=== PATIENT | male | born 1995 | race American Indian/Alaskan Native ===

== ENCOUNTER 2017-12-12 18:46 | Emergency (ER) | payer MEDICAID ==
[~2017-12-12] VITALS: Ht 165.1 cm; Wt 86.0 kg
[~2017-12-12 18:46] MED LIST: ARIP2TAB37 PO; CHOL100046 PO; TEN1T PO; TRAZ-218 PO; VITA0.4T16 PO
[2017-12-12] MEDS ORDERED: ondansetron 4mg rapidly disintigrating tab PO ONE (19:30)
[2017-12-12 20:15] VITALS: BP 125/73
[2017-12-12] MEDS ORDERED: ketorolac trometh inj. 60 MG/2 ML VIAL IM ONE (20:25)
== END 2017-12-12 20:41 | disposition home or self-care (01) ==
LOC: ER 18:47
DX: S06.0X0A Concussion without loss of consciousness, initial encounter (principal); Z79.899 Other long term (current) drug therapy; Z98.2 Presence of cerebrospinal fluid drainage device; W01.198A Fall on same level from slipping, tripping and stumbling with subsequent striking against other object, initial encounter; Y93.89 Activity, other specified; Y92.098 Other place in other non-institutional residence as the place of occurrence of the external cause; Y99.8 Other external cause status
CPT/HCPCS: 70450; 96372; 99284; J1885

== ENCOUNTER 2018-07-10 23:08 | Emergency (ER) | payer MEDICAID ==
[~2018-07-10] VITALS: Ht 162.6 cm; Wt 93.2 kg
[~2018-07-10 23:08] MED LIST changes: -TRAZ-218 PO; +TRAZ-251 PO
[2018-07-11] MEDS ORDERED: aripiprazole 5mg tablet PO STA (01:15)
--- NOTE | 2018-07-11 06:45 | NUR ---
Received Pt awake in bed and discussed why he was here. Calm and cooperative, yet needing reassurance that we would help him. Report from NOC stated he would be DC'd this AM but he has no where to go. He has an appt at [facility] tomorrow.
--- NOTE | 2018-07-11 09:45 | NUR ---
Pt used phone to call mother, and call ended when he hung up on her. Discussed further options for where he could go and encouraged to call mother again. This nurse was handed phone from client to talk to his mother, who provided some Hx of losing housing and angry/violent outbursts. Pt able to contact a cousin who he states will pick him up after work at 1730. Pt denies SI or any thoughts of self harm, and is calm and cooperative with staff.
[2018-07-11 17:46] VITALS: BP 142/94
== END 2018-07-11 18:40 | disposition home or self-care (01) ==
LOC: ER 23:08
DX: R45.6 Violent behavior (principal); F31.9 Bipolar disorder, unspecified; F20.9 Schizophrenia, unspecified; Z79.899 Other long term (current) drug therapy
CPT/HCPCS: 99283

== ENCOUNTER 2018-07-27 19:12 | Emergency (ER) | payer MEDICAID ==
[~2018-07-27] VITALS: Ht 162.6 cm; Wt 90.8 kg
--- NOTE | 2018-07-27 19:54 | NUR ---
Pt up to bathroom to provide urine specimen. Pt changed into green scrubs.
--- NOTE | 2018-07-27 20:02 | NUR ---
Pt arrived to overflow from [facility] er. Recvd report from [place] and assumed care. Pt states he is here for "SDI" states he has a plan to hang himself. Pt reports hx of jumping out of a vehicle and hitting his arms. Pt reports he did not take his evening meds tonight. Pt smells of feces, denies any pain or discomfort. Pt is currently laying on his bed eyes open rr even and unlabored.
[2018-07-27 20:55] LABS: URINE AMPHETAMINE SCREEN NEGATIVE (Neg); URINE BARBITUATE SCREEN NEGATIVE (Neg); URINE BENZODIAZEPINES SCREEN NEGATIVE (Neg); URINE CANNABINOID SCREEN NEGATIVE (Neg); URINE COCAINE SCREEN NEGATIVE (Neg); URINE METHADONE SCREEN NEGATIVE (Neg); URINE OPIATE SCREEN NEGATIVE (Neg); URINE PHENCYCLIDINE SCREEN NEGATIVE (Neg)
[2018-07-27 21:21] LABS: BASOPHILS % (AUTO) 0.3 % (0-1); EOSINOPHILS # (AUTO) 0.1 X10'3 (0-0.9); HEMATOCRIT 45.3 % (42.0-52.0); HEMOGLOBIN 15.8 g/dl (14.0-17.9); LYMPHOCYTES # (AUTO) 2.8 X10'3 (1.1-4.8); LYMPHOCYTES % (AUTO) 30.3 % (21-51); MEAN CORPUSCULAR HEMOGLOBIN 30.7 PG (27.0-31.0); MEAN CORPUSCULAR HGB CONC 34.8 g/dL (33.0-36.5); MEAN CORPUSCULAR VOLUME 88.2 FL (78-98); MEAN PLATELET VOLUME 6.8 FL (7.4-10.4); MONOCYTES # (AUTO) 0.7 X10'3 (0-0.9); MONOCYTES % (AUTO) 7.6 % (2-12); NEUTROPHILS # (AUTO) 5.6 X10'3 (1.8-7.7); NEUTROPHILS % (AUTO) 60.8 % (42-75); PLATELET COUNT 269 X10'3 (140-440); RED BLOOD COUNT 5.14 X10'6 (4.70-6.10); RED CELL DISTRIBUTION WIDTH 13.7 % (11.5-14.5); WHITE BLOOD COUNT 9.2 X10'3 (4.5-11.0)
[2018-07-27 21:34] LABS: ALANINE AMINOTRANSFERASE 41 U/L (12-78); ALBUMIN 3.5 G/DL (3.4-5.0); ALKALINE PHOSPHATASE 108 IU/L (46-116); ANION GAP 7 (8-16); ASPARTATE AMINO TRANSFERASE 13 U/L (10-37); BILIRUBIN,TOTAL 0.4 MG/DL (0.1-1.0); BLOOD UREA NITROGEN 15 MG/DL (7-18); BUN/CREATININE RATIO 14.4 (5.4-32.0); CHLORIDE 108 MMOL/L (99-107); CREATININE 1.04 MG/DL (0.60-1.10); GLUCOSE 99 MG/DL (70-104); POTASSIUM 3.6 MMOL/L (3.5-5.1); SODIUM 141 MMOL/L (135-145); TOTAL CARBON DIOXIDE 26.3 MMOL/L (24-32); TOTAL PROTEIN 6.9 G/DL (6.4-8.2); eGFR 90 ML/MIN
[2018-07-27 21:37] LABS: CALCIUM 8.4 MG/DL (8.5-10.1)
[2018-07-27 21:53] LABS: ETHANOL < 0.010 GM/DL (0.0-0.010)
--- NOTE | 2018-07-27 23:38 | NUR ---
Pt is asleep laying on his right side rr even and unlabored no s/s distress.
--- NOTE | 2018-07-28 01:01 | NUR ---
Pt sleeping on his left side, rr even and unlabored no s/s distress.
--- NOTE | 2018-07-28 03:50 | NUR ---
Pt is laying on his back sleeping, rr12 even and unlabored no s/s distress.
--- NOTE | 2018-07-28 05:43 | NUR ---
Packet faxed to [facility]. Unable to confirm receipt of packet as [id number] hours.
[2018-07-28] MEDS ORDERED: traZODone 50mg tablet PO SCH (06:05)
--- NOTE | 2018-07-28 06:40 | NUR ---
Nursing Nto Addendum: 07/28/18 at 0640 by PBROWN Nursing Note: Pt up to restroom. No S&S of distress. No difficulty with ambulation, will continue to monitor.
[2018-07-28] MEDS ORDERED: FOLIC ACID PO SCH (08:00)
[2018-07-28] MEDS ORDERED: vitamin D (cholecalciferol) 1,000 unit tablet PO SCH (08:00)
[2018-07-28] MEDS ORDERED: guanFACINE 1 mg tablet PO SCH (08:00)
[2018-07-28] MEDS ORDERED: VITAMIN B COMPLEX PO SCH (08:00)
--- NOTE | 2018-07-28 08:49 | NUR ---
Nursing Note: Following breakfast pt vomited. He indicated he was coughing, but not nauseated. At this time, pt denies depression and SI. He said he heard voices last night. When asked if his grandma knew where he is, he said that his grandma knew he was here because she dropped him off last night because he said he was going to hurt himself. Pt performing personal hygiene. Pt incontinent of stool and wearing brief. Will continue to monitor.
--- NOTE | 2018-07-28 09:35 | NUR ---
Nursing Note: Pt sitting up in bed looking at the wall. Pt noted to frequently turn head side to side. No S&S of distress, will continue to monitor.
--- NOTE | 2018-07-28 11:24 | NUR ---
Nursing Note: Pt laying in bed with eyes closed, respirations even and unlabored, no S&S of distress, will continue to monitor.
--- NOTE | 2018-07-28 11:56 | NUR ---
Nursing Note: [facility] worker at the pt's bedside evaluating pt. Pt calm and cooperative. Will continue to monitor.
--- NOTE | 2018-07-28 12:16 | NUR ---
Nursing Note: Pt BP 146/94 and HR 97, notified Dr. Sharma. Will continue to monitor.
--- NOTE | 2018-07-28 12:44 | NUR ---
PT IS DISCHAGRED HOME AND PTS GRANDMA CAME TO PICK HIM UP. PT LEFT AT 12:40
--- NOTE | 2018-07-28 12:59 | NUR ---
Discharge Note: Pt Discharged at 1240. Pt ambulatory out of ED escorted by GRETCHEN Lomeli, Grandmother picked up pt in private vehicle. Pt denies SI and depression. No S&S of distress. Pt took all valuables with him. Discharge instructions given, pt instructed to carry medication list with him at all times. Pt provided opportunity to ask questions.
[2018-07-28 13:04] VITALS: BP 146/94
== END 2018-07-28 12:40 | disposition home or self-care (01) ==
LOC: ER 19:13
DX: R45.851 Suicidal ideations (principal); F31.9 Bipolar disorder, unspecified; F20.9 Schizophrenia, unspecified; Z98.890 Other specified postprocedural states; Z79.899 Other long term (current) drug therapy
CPT/HCPCS: 36415; 80053; 80305; 80320; 84443; 85025; 99284

== ENCOUNTER 2019-01-31 13:28 | Emergency (ER) | payer MEDICAID ==
[~2019-01-31] VITALS: Ht 162.6 cm; Wt 76.4 kg
[~2019-01-31 13:28] MED LIST changes: +ARIP20TA4 PO; -ARIP2TAB37 PO; +CHOL378P PO; +HYDR-3686 PO
--- NOTE | 2019-01-31 13:41 | NUR ---
pt escorted from ER [facility] to room 26 in overflow by myself and two law enforcement, no difficulties
[2019-01-31 14:14] LABS: BASOPHILS % (AUTO) 0.5 % (0-1); EOSINOPHILS # (AUTO) 0.1 X10'3 (0-0.9); EOSINOPHILS % (AUTO) 0.7 % (0-6); HEMOGLOBIN 15.9 g/dl (14.0-17.9); LYMPHOCYTES # (AUTO) 1.5 X10'3 (1.1-4.8); LYMPHOCYTES % (AUTO) 19.4 % (21-51); MEAN CORPUSCULAR HEMOGLOBIN 31.5 PG (27.0-31.0); MEAN CORPUSCULAR HGB CONC 34.6 g/dL (33.0-36.5); MEAN PLATELET VOLUME 6.8 FL (7.4-10.4); MONOCYTES # (AUTO) 0.5 X10'3 (0-0.9); MONOCYTES % (AUTO) 6.5 % (2-12); NEUTROPHILS # (AUTO) 5.6 X10'3 (1.8-7.7); NEUTROPHILS % (AUTO) 72.9 % (42-75); PLATELET COUNT 307 X10'3 (140-440); RED BLOOD COUNT 5.06 X10'6 (4.70-6.10); RED CELL DISTRIBUTION WIDTH 13.7 % (11.5-14.5); WHITE BLOOD COUNT 7.7 X10'3 (4.5-11.0)
[2019-01-31 14:15] LABS: URINE AMPHETAMINE SCREEN NEGATIVE (Neg); URINE BARBITUATE SCREEN NEGATIVE (Neg); URINE BENZODIAZEPINES SCREEN NEGATIVE (Neg); URINE CANNABINOID SCREEN POSITIVE (Neg); URINE COCAINE SCREEN NEGATIVE (Neg); URINE METHADONE SCREEN NEGATIVE (Neg); URINE OPIATE SCREEN NEGATIVE (Neg); URINE PHENCYCLIDINE SCREEN NEGATIVE (Neg)
--- NOTE | 2019-01-31 14:18 | NUR ---
Pt. arrived to bed 26. Pleasant and cooperative. States he is here because he was throwing items at the [employer] for the [employer]. When asked why he states "They told me to leave, I was happy to just sit there and enjoy my day." States he hears voices, does not elaborate on what they say but states "I have 4 of them in me, happy, depressed, angry,". Explains he has a payee that gives him $50.00 week for food, if he doesn't have enough his parents will give him small amounts of money for food. While sitting in bed, he continually shakes his head from side to side. Admits to being homeless, states he has a tarp when he needs to stay dry, would like a place to live and wanted to speak to his doctor at [facility] to get back on his psychiatric medications.
[2019-01-31 14:25] LABS: ALANINE AMINOTRANSFERASE 44 U/L (12-78); ALBUMIN 3.8 G/DL (3.4-5.0); ALBUMIN/GLOBULIN RATIO 1.1 (1.1-1.5); ALKALINE PHOSPHATASE 126 IU/L (46-116); ANION GAP 5 (8-16); ASPARTATE AMINO TRANSFERASE 16 U/L (10-37); BILIRUBIN,TOTAL 0.2 MG/DL (0.1-1.0); BLOOD UREA NITROGEN 14 MG/DL (7-18); CALCIUM 8.4 MG/DL (8.5-10.1); CHLORIDE 108 MMOL/L (99-107); CREATININE 1.08 MG/DL (0.60-1.10); ETHANOL < 0.010 GM/DL (0.0-0.010); GLUCOSE 92 MG/DL (70-104); SODIUM 141 MMOL/L (135-145); TOTAL CARBON DIOXIDE 28.3 MMOL/L (24-32); TOTAL PROTEIN 7.2 G/DL (6.4-8.2); eGFR 86 ML/MIN
[2019-01-31] MEDS ORDERED: HYDR-3927 PO (14:31)
[2019-01-31] MEDS ORDERED: CHOL500050 PO (14:32)
[2019-01-31 15:10] LABS: PLATELET ESTIMATE NORMAL; TOTAL CELLS COUNTED 100
[2019-01-31] MEDS ORDERED: traZODone 50mg tablet PO SCH (15:50)
--- NOTE | 2019-01-31 16:19 | NUR ---
spoke with patient regarding his medications, able to communicate his normal medications, states he has not been on them for more than 7 months. When asked why he wasn't taking them, he stated "I don't know". Has a psychiatrist at [facility] and appears to have the cognitive abilityt to obtain and take his medications.
--- NOTE | 2019-01-31 18:05 | NUR ---
Evaluated by [facility] SW. Determined to not meet requirement for 5150 hold. Plan [facility] to the [facility] and follow up with physician at [facility].
--- NOTE | 2019-01-31 18:30 | NUR ---
Assumed care of patient, pt sitting up talking animatedly to another patient and eating dinner at this time. RR even and unlabored.
[2019-01-31 19:12] VITALS: BP 136/83
--- NOTE | 2019-01-31 19:25 | NUR ---
Pt. discharged to the [facility] at s time via [employer], he was able to ambulate out to the front lobby accompanied by staff. Reviewed discharge instructions with patient and pt. provided with resources. He is able to contract for the safety of himself and others at this time. He has plans to follow-up with [facility] and get back on his medications of which he has been non-compliant. He received a meal prior to discharge and has weather appropriate clothing to wear. Upon completion of 1:1 assessment with this law writer, pt. denies any S/I, HI, H/A, and no delustional statements made. V/S are WNL, and pt. refused to take any HS medications prior to discharge.
[2019-01-31] MEDS ORDERED: guanFACINE 1 mg tablet PO SCH (20:00)
[2019-01-31] MEDS ORDERED: hydrOXYzine 25 MG tablet PO SCH (21:00)
[2019-02-01] MEDS ORDERED: vitamin D (cholecalciferol) 1,000 unit tablet PO SCH (08:00)
[2019-02-01] MEDS ORDERED: hydrOXYzine 25 MG tablet PO SCH ×2 (08:00)
[2019-02-01] MEDS ORDERED: ARIPIPRAZOLE 10 MG TABLET PO SCH (08:00)
[2019-02-01] MEDS ORDERED: FOLIC ACID PO SCH (08:00)
[2019-02-01] MEDS ORDERED: VITAMIN B COMPLEX PO SCH (08:00)
[2019-02-01] MEDS ORDERED: chloestyramine/aspartame 4gm packet PO SCH (11:00)
== END 2019-01-31 19:39 | disposition home or self-care (01) ==
LOC: ER 13:30
DX: R45.6 Violent behavior (principal); F31.9 Bipolar disorder, unspecified; F20.9 Schizophrenia, unspecified; F90.9 Attention-deficit hyperactivity disorder, unspecified type; F12.90 Cannabis use, unspecified, uncomplicated; Z98.890 Other specified postprocedural states; Z79.899 Other long term (current) drug therapy
CPT/HCPCS: 36415; 80053; 80305; 80320; 85025; 99285

== ENCOUNTER 2019-03-25 19:09 | Emergency (ER) | payer MEDICAID ==
[~2019-03-25] VITALS: Ht 165.1 cm; Wt 75.0 kg
[2019-03-25 21:38] LABS: BASOPHILS % (AUTO) 0.6 % (0-1); EOSINOPHILS # (AUTO) 0.1 X10'3 (0-0.9); EOSINOPHILS % (AUTO) 1.4 % (0-6); HEMATOCRIT 45.2 % (42.0-52.0); HEMOGLOBIN 15.8 g/dl (14.0-17.9); LYMPHOCYTES # (AUTO) 2.5 X10'3 (1.1-4.8); LYMPHOCYTES % (AUTO) 32.5 % (21-51); MEAN CORPUSCULAR HEMOGLOBIN 31.4 PG (27.0-31.0); MEAN CORPUSCULAR VOLUME 89.8 FL (78-98); MEAN PLATELET VOLUME 6.9 FL (7.4-10.4); MONOCYTES # (AUTO) 0.5 X10'3 (0-0.9); MONOCYTES % (AUTO) 6.7 % (2-12); NEUTROPHILS # (AUTO) 4.5 X10'3 (1.8-7.7); NEUTROPHILS % (AUTO) 58.8 % (42-75); PLATELET COUNT 272 X10'3 (140-440); RED BLOOD COUNT 5.03 X10'6 (4.70-6.10); RED CELL DISTRIBUTION WIDTH 13.5 % (11.5-14.5); WHITE BLOOD COUNT 7.7 X10'3 (4.5-11.0)
[2019-03-25 21:52] LABS: ALANINE AMINOTRANSFERASE 17 U/L (12-78); ALBUMIN 3.7 G/DL (3.4-5.0); ALBUMIN/GLOBULIN RATIO 1.2 (1.1-1.5); ALKALINE PHOSPHATASE 125 IU/L (46-116); ANION GAP 6 (8-16); ASPARTATE AMINO TRANSFERASE 12 U/L (10-37); BILIRUBIN,TOTAL 0.3 MG/DL (0.1-1.0); BLOOD UREA NITROGEN 11 MG/DL (7-18); BUN/CREATININE RATIO 11.5 (5.4-32.0); CALCIUM 8.5 MG/DL (8.5-10.1); CHLORIDE 111 MMOL/L (99-107); CREATININE 0.96 MG/DL (0.60-1.10); ETHANOL < 0.010 GM/DL (0.0-0.010); GLUCOSE 104 MG/DL (70-104); POTASSIUM 3.6 MMOL/L (3.5-5.1); SODIUM 146 MMOL/L (135-145); TOTAL CARBON DIOXIDE 28.6 MMOL/L (24-32); TOTAL PROTEIN 6.9 G/DL (6.4-8.2); eGFR > 90 ML/MIN
--- NOTE | 2019-03-25 23:00 | NUR ---
Pt brought to overflow bed 23 from main ED. pt now states that he is no longer suicidal. pt denies any complaints and appears to be fatigued or sedated, as he was difficult to arouse for assessment.
--- NOTE | 2019-03-25 23:10 | NUR ---
attempted to have pt provide urine sample but pt refused, saying he "will later."
[2019-03-25] MEDS ORDERED: NO HOME MEDS (23:19)
--- NOTE | 2019-03-25 23:19 | NUR ---
pt reports that he does not take medications. He stated that he used to take meds but no longer does but is unsure how long it has been. pt's external med hx show his last rx was prescribed in June 2018.
--- NOTE | 2019-03-25 23:48 | NUR ---
pt is sleeping, no s/s of distress noted. rr unlabored.
--- NOTE | 2019-03-26 02:44 | NUR ---
pt continues to sleep with periods of restlessness. no s/s of distress noted.
--- NOTE | 2019-03-26 04:36 | NUR ---
pt is sleeping, rr unlabored and even, no s/s of distress noted.
--- NOTE | 2019-03-26 05:37 | NUR ---
pt is sleeping, wrapped up in his blanket with his head covered. no s/s of distress noted, rr unlabored and even.
[2019-03-26 05:57] VITALS: BP 116/70
[2019-03-26] MEDS ORDERED: LORazepam 1 MG tablet PO ONE (06:15)
[2019-03-26 06:23] LABS: URINE AMPHETAMINE SCREEN NEGATIVE (Neg); URINE BARBITUATE SCREEN NEGATIVE (Neg); URINE BENZODIAZEPINES SCREEN NEGATIVE (Neg); URINE CANNABINOID SCREEN POSITIVE (Neg); URINE COCAINE SCREEN NEGATIVE (Neg); URINE METHADONE SCREEN NEGATIVE (Neg); URINE OPIATE SCREEN NEGATIVE (Neg); URINE PHENCYCLIDINE SCREEN NEGATIVE (Neg)
--- NOTE | 2019-03-26 06:26 | NUR ---
pt sitting up in bed asking about his meds. c/o anxiety. Ativan ordered and given by night RN. pt asking about taking [place] 300mg. Dr. Fernández aware and ordered to check lithium level. pt appears to be calm and cooperative.
--- NOTE | 2019-03-26 08:13 | NUR ---
resting calm and quiet in bed.
--- NOTE | 2019-03-26 09:56 | NUR ---
resting calm and quiet in bed.
== END 2019-03-26 11:49 | disposition home or self-care (01) ==
LOC: ER 19:10
DX: F32.9 Major depressive disorder, single episode, unspecified (principal); F20.9 Schizophrenia, unspecified; F17.200 Nicotine dependence, unspecified, uncomplicated; F12.90 Cannabis use, unspecified, uncomplicated; Z98.890 Other specified postprocedural states; Z59.0 Homelessness
CPT/HCPCS: 36415; 80053; 80178; 80305; 80320; 85025; 99284

== ENCOUNTER 2019-06-16 15:17 | Emergency (ER) | payer MEDICAID ==
[~2019-06-16] VITALS: Ht 165.1 cm; Wt 68.2 kg
[~2019-06-16 15:17] MED LIST changes: -ARIP20TA4 PO; -CHOL100046 PO; -CHOL378P PO; -HYDR-3686 PO; +NO HOME MEDS; -TEN1T PO; -TRAZ-251 PO; -VITA0.4T16 PO
[2019-06-16 16:13] LABS: CLARITY,URINE CLEAR (Clear); COLOR,URINE YELLOW (Yellow); GLUCOSE, URINE NEGATIVE (Neg); KETONES,URINE NEGATIVE (Neg); LEUKOCYTE ESTERASE ,URINE NEGATIVE (Neg); NITRITES, URINE NEGATIVE (Neg); OCCULT BLOOD,URINE NEGATIVE (Neg); PH,URINE 7.5 (4.8-8.0); PROTEIN,URINE NEGATIVE (Neg); UA COLLECTION TYPE CLN CATCH MIDSTREAM
[2019-06-16 16:14] LABS: BASOPHILS % (AUTO) 0.3 % (0-1); EOSINOPHILS # (AUTO) 0.1 X10'3 (0-0.9); EOSINOPHILS % (AUTO) 0.6 % (0-6); HEMATOCRIT 46.9 % (42.0-52.0); HEMOGLOBIN 16.4 g/dl (14.0-17.9); LYMPHOCYTES # (AUTO) 1.9 X10'3 (1.1-4.8); LYMPHOCYTES % (AUTO) 21.4 % (21-51); MEAN CORPUSCULAR VOLUME 88.7 FL (78-98); MONOCYTES # (AUTO) 0.5 X10'3 (0-0.9); MONOCYTES % (AUTO) 5.1 % (2-12); NEUTROPHILS # (AUTO) 6.4 X10'3 (1.8-7.7); NEUTROPHILS % (AUTO) 72.6 % (42-75); PLATELET COUNT 302 X10'3 (140-440); RED BLOOD COUNT 5.29 X10'6 (4.70-6.10); RED CELL DISTRIBUTION WIDTH 13.2 % (11.5-14.5); WHITE BLOOD COUNT 8.9 X10'3 (4.5-11.0)
[2019-06-16 16:16] LABS: URINE AMPHETAMINE SCREEN NEGATIVE (Neg); URINE BARBITUATE SCREEN NEGATIVE (Neg); URINE BENZODIAZEPINES SCREEN NEGATIVE (Neg); URINE CANNABINOID SCREEN NEGATIVE (Neg); URINE COCAINE SCREEN NEGATIVE (Neg); URINE METHADONE SCREEN NEGATIVE (Neg); URINE OPIATE SCREEN NEGATIVE (Neg); URINE PHENCYCLIDINE SCREEN NEGATIVE (Neg)
--- NOTE | 2019-06-16 16:17 | NUR ---
sitting up in bed resting
[2019-06-16 16:23] LABS: ALANINE AMINOTRANSFERASE 19 U/L (12-78); ALBUMIN/GLOBULIN RATIO 1.1 (1.1-1.5); ALKALINE PHOSPHATASE 124 IU/L (46-116); ANION GAP 10 (8-16); ASPARTATE AMINO TRANSFERASE 15 U/L (10-37); BILIRUBIN,TOTAL 0.4 MG/DL (0.1-1.0); BLOOD UREA NITROGEN 20 MG/DL (7-18); BUN/CREATININE RATIO 18.9 (5.4-32.0); CALCIUM 8.7 MG/DL (8.5-10.1); CHLORIDE 106 MMOL/L (99-107); CREATININE 1.06 MG/DL (0.60-1.10); GLUCOSE 89 MG/DL (70-104); POTASSIUM 4.1 MMOL/L (3.5-5.1); SODIUM 141 MMOL/L (135-145); TOTAL CARBON DIOXIDE 25.2 MMOL/L (24-32); TOTAL PROTEIN 7.6 G/DL (6.4-8.2); eGFR 88 ML/MIN
--- NOTE | 2019-06-16 17:02 | NUR ---
lying down in bed
[2019-06-16 17:22] LABS: ETHANOL < 0.010 GM/DL (0.0-0.010)
--- NOTE | 2019-06-16 17:50 | NUR ---
PACKET SENT TO [facility]
--- NOTE | 2019-06-16 19:28 | NUR ---
Patient is pleasant and A&O x3, follow commands and give no indication that he would be violent. At this time he requested a sandwich and was given one.
--- NOTE | 2019-06-16 20:50 | NUR ---
Patient talking with [facility] now.
--- NOTE | 2019-06-17 06:30 | NUR ---
pt is resting in bed. no concerns at this time
--- NOTE | 2019-06-17 07:30 | NUR ---
pt is resting in bed
--- NOTE | 2019-06-17 08:37 | NUR ---
case management and social worker clinical paged about placement issues
--- NOTE | 2019-06-17 09:00 | NUR ---
pt resting in his room.
--- NOTE | 2019-06-17 10:00 | NUR ---
pt resting in his room.
--- NOTE | 2019-06-17 11:00 | NUR ---
pt resting in his room.
--- NOTE | 2019-06-17 12:00 | NUR ---
pt resting in his room.
--- NOTE | 2019-06-17 13:00 | NUR ---
pt resting in his room.
--- NOTE | 2019-06-17 13:54 | NUR ---
pt does not have a safe dc plan. pt can not stay at mission, family or hotel. pt has no money for food or intermediate. pt does not have his medications and his old RX is . called upstairs for med recommendations. [facility] called they informed staff they have limited resources for him being he is not conserved. [facility] dc pt and released hold. bernadette made an adult protective service case regarding [facility] no providing help for the patient. caregiver called patient regarding helping pt to get his belonging from the hotel
--- NOTE | 2019-06-17 15:00 | NUR ---
pt resting in his room.
--- NOTE | 2019-06-17 16:00 | NUR ---
pt resting in his room.
--- NOTE | 2019-06-17 17:00 | NUR ---
pt resting in his room.
--- NOTE | 2019-06-17 18:10 | NUR ---
pt can be dc when a safe dc place is found. boyd cerda is working on placement now and thinks it will be confirmed in the morning. pt's rx was filled for 30 days. pills were picked up from pharmacy for the patient. please make sure the patient is sent with his meds
--- NOTE | 2019-06-17 18:28 | NUR ---
pt resting in his room.
[2019-06-17] MEDS ORDERED: LIT300C PO (19:00)
[2019-06-17] MEDS ORDERED: GUAN1TAB PO (19:00)
[2019-06-17] MEDS ORDERED: HYDR-3686 PO (19:00)
--- NOTE | 2019-06-17 19:36 | NUR ---
Patient cooperative and pleasant, is resting comfortably on hospital bed. He inquired when he would be dischared, I advised we were working with SS to find a safe place for him to go.
[2019-06-17] MEDS: guanFACINE 1 mg tablet PO SCH (20:16)
[2019-06-17] MEDS: lithium carbonate 150mg capsule PO SCH (20:16)
--- NOTE | 2019-06-18 06:48 | NUR ---
awake, sitting up and resting in bed quietly. no issues or needs at this time. asked what time it was and when breakfast was coming.
--- NOTE | 2019-06-18 08:30 | NUR ---
sat up in bed eating breakfast. calm and cooperative with getting vital signs this AM.
--- NOTE | 2019-06-18 08:39 | NUR ---
up to bathroom getting himself cleaned up. pt very smelly. bed linens changed.
[2019-06-18] MEDS: guanFACINE 1 mg tablet PO SCH ×2 (08:49→21:07)
[2019-06-18] MEDS: hydrOXYzine 25 MG tablet PO PRN ×2 (08:52→16:26)
--- NOTE | 2019-06-18 10:09 | NUR ---
resting quietly in bed.
--- NOTE | 2019-06-18 12:59 | NUR ---
sitting up in bed eating lunch. calm.
--- NOTE | 2019-06-18 14:43 | NUR ---
resting quietly in bed. no needs at this time.
--- NOTE | 2019-06-18 15:49 | NUR ---
Glenis Simpson - pts worker with [facility] called for update on pt and stated she is working on getting a referral packet sent to a respite in [place]. States she could know more info about that tomorrow. States she was able to obtain all the pts belongings from the hotel for him.
--- NOTE | 2019-06-18 16:31 | NUR ---
snack provided and Atarax adminstered per pt request. pt pleasant sitting up in bed.
--- NOTE | 2019-06-18 17:56 | NUR ---
calm and pleasant sitting up in bed.
--- NOTE | 2019-06-18 19:00 | NUR ---
Pt sitting up in bed quietly.
--- NOTE | 2019-06-18 20:00 | NUR ---
Pt resting quietly.
--- NOTE | 2019-06-18 21:00 | NUR ---
Pt resting quietly, respirations normal, no s/s of distress.
[2019-06-18] MEDS: lithium carbonate 150mg capsule PO SCH (21:04)
--- NOTE | 2019-06-18 22:00 | NUR ---
Pt resting quietly, respirations normal, no s/s of distress.
--- NOTE | 2019-06-18 23:06 | NUR ---
Pt resting quietly, respirations normal, no s/s of distress.
--- NOTE | 2019-06-19 01:00 | NUR ---
Pt resting quietly, respirations normal, no s/s of distress.
--- NOTE | 2019-06-19 02:00 | NUR ---
Pt resting quietly, respirations normal, no s/s of distress.
--- NOTE | 2019-06-19 03:00 | NUR ---
Pt resting quietly, respirations normal, no s/s of distress.
--- NOTE | 2019-06-19 03:57 | NUR ---
Pt resting quietly, respirations normal, no s/s of distress.
--- NOTE | 2019-06-19 07:00 | NUR ---
Pt lying in bed sleeping on his left side.
[2019-06-19] MEDS: guanFACINE 1 mg tablet PO SCH ×2 (08:08→19:13)
--- NOTE | 2019-06-19 09:00 | NUR ---
Pt is awake and remains calm. Ate all of his breakfast and took his medication.
--- NOTE | 2019-06-19 11:00 | NUR ---
Informed pt of xray to be coming to take his chest xray soon. He states understanding.
--- NOTE | 2019-06-19 13:35 | NUR ---
Breaking primary RN, pt is supine in bed, eyes closed, regular breathing observed, no agitation observed, will continue to monitor
--- NOTE | 2019-06-19 15:00 | NUR ---
Still waiting to hear for placement from [facility]. Pt made aware of plan.
--- NOTE | 2019-06-19 17:00 | NUR ---
Spoke with Bel from licensed social worker. No beds available today.
--- NOTE | 2019-06-19 19:02 | NUR ---
pt is requesting his anxiety meds. he stated the commotion on the unit is overwhelming him
--- NOTE | 2019-06-19 19:06 | NUR ---
pt asked for all his night meds to be administered at this time
[2019-06-19] MEDS: hydrOXYzine 25 MG tablet PO PRN (19:13)
[2019-06-19] MEDS: lithium carbonate 150mg capsule PO SCH (19:13)
--- NOTE | 2019-06-20 06:28 | NUR ---
resting in bed quietly. rr even and unlabored. no needs at this time.
[2019-06-20] MEDS: guanFACINE 1 mg tablet PO SCH ×2 (08:41→22:23)
--- NOTE | 2019-06-20 08:43 | NUR ---
sitting up in bed eating breakfast, calm and cooperative.
--- NOTE | 2019-06-20 09:01 | NUR ---
Called Nga from [facility] for update. He has 2 referrals out currently for pts placement and will put out 4 more today. Still awaiting placement.
--- NOTE | 2019-06-20 10:42 | NUR ---
sitting up in bed awake, making random animal sounds. no needs at this time. pt frequantly asks for an update on possible transfer to a facility. pt updated with same information each time "no new news yet from [facility]."
--- NOTE | 2019-06-20 11:29 | NUR ---
sitting up in bed, awake, calm.
--- NOTE | 2019-06-20 13:06 | NUR ---
sitting up in bed eating lunch. pleasant attitude.
--- NOTE | 2019-06-20 14:12 | NUR ---
sitting up in bed, pleasant and quiet.
--- NOTE | 2019-06-20 15:45 | NUR ---
calm, sitting up in bed, pleasant with a smile on his face. no needs at this time.
--- NOTE | 2019-06-20 17:00 | NUR ---
pt calm, pleasant, laughing, and talking to other patients, joking with staff. sitting up in bed drawing on paper. appears to be in good spirits.
--- NOTE | 2019-06-20 19:11 | NUR ---
Patient is awake, he ate full dinner and colored. The patient then laid back and went to sleep in a mid fowlers position.
[2019-06-20] MEDS: lithium carbonate 150mg capsule PO SCH (22:23)
[2019-06-20] MEDS: hydrOXYzine 25 MG tablet PO PRN (22:23)
--- NOTE | 2019-06-21 00:06 | NUR ---
Patient has soiled his scrubs with stool. Patient taken to bathroom. Given clean wipes to clean self. Patient is back to bed. He complains of some anxiety.
[2019-06-21] MEDS ORDERED: LORazepam 1 MG tablet PO ONE (00:50)
[2019-06-21] MEDS ORDERED: diphenhydrAMINE 25mg capsule PO ONE (00:50)
--- NOTE | 2019-06-21 01:05 | NUR ---
Patient was given PO Benadryl 25 mg for sleep along with Ativan 1 mg PO for anxiety. He is resting now. In view from the nursing station.
--- NOTE | 2019-06-21 02:30 | NUR ---
Pt sleeping, lying on his right side with blankets covering to his chest. RR 14 and unlabored. Sitter within view of Pt aat.
--- NOTE | 2019-06-21 03:36 | NUR ---
Patient is sleeping quietly on his right side.
--- NOTE | 2019-06-21 04:30 | NUR ---
Patient is sleeping quietly.
--- NOTE | 2019-06-21 06:27 | NUR ---
Patient awoke for vital signs then returned to sleep. No distress.
--- NOTE | 2019-06-21 07:00 | NUR ---
Received pt asleep in his bed without complaints or distress. Pt up x 1 to the bathroom.
[2019-06-21] MEDS: guanFACINE 1 mg tablet PO SCH ×2 (07:59→20:28)
--- NOTE | 2019-06-21 09:00 | NUR ---
Pt fell back to sleep after awakening for breakfast. Pt pleasant upon approach and took am medication with only minimal prompting.
--- NOTE | 2019-06-21 11:00 | NUR ---
Pt laying in bed with eyes closed in no apparent distress.
--- NOTE | 2019-06-21 11:32 | NUR ---
Spoke with Bry at [facility] and they are awaiting acceptance to a facility in [place] and will update us when they hear back.
--- NOTE | 2019-06-21 13:00 | NUR ---
Pt was able to get a shower with security and [facility] [employer] tech assistance. Bed linen changed while away at shower. Pt cooperative. Pt asking if we have heard anything about his leaving. No updates to give pt at this time and he is cooperative with that.
--- NOTE | 2019-06-21 15:00 | NUR ---
Pt sat up for lunch and was awake for awhile, but currently is sleeping again in bed without distress.
--- NOTE | 2019-06-21 17:00 | NUR ---
Pt asleep in bed without complaints or distress.
[2019-06-21] MEDS: hydrOXYzine 25 MG tablet PO PRN (20:28)
[2019-06-21] MEDS: lithium carbonate 150mg capsule PO SCH (20:28)
--- NOTE | 2019-06-21 21:18 | NUR ---
Patient is sleeping quietly on his left side.
--- NOTE | 2019-06-21 22:59 | NUR ---
Patient is sleeping on his right side in bed.
--- NOTE | 2019-06-22 00:29 | NUR ---
Patient is sleeping on his right side.
--- NOTE | 2019-06-22 00:30 | NUR ---
Patient is now sleeping in a mid fowlers position.
--- NOTE | 2019-06-22 03:06 | NUR ---
Patient is sleeping on his right side in bed.
[2019-06-22] MEDS: guanFACINE 1 mg tablet PO SCH ×2 (08:52→20:21)
[2019-06-22] MEDS ORDERED: famotidine 20mg tablet PO ONE (13:51)
--- NOTE | 2019-06-22 14:05 | NUR ---
Assumed care of pt while primary nurse on lunch break. Resting in [facility]. Will continue to monitor.
[2019-06-22] MEDS: lithium carbonate 150mg capsule PO SCH (20:22)
[2019-06-22] MEDS: famotidine 20mg tablet PO SCH (20:22)
[2019-06-22] MEDS: hydrOXYzine 25 MG tablet PO PRN (20:42)
--- NOTE | 2019-06-23 07:17 | NUR ---
Resting in bed
[2019-06-23] MEDS: hydrOXYzine 25 MG tablet PO PRN (07:36)
[2019-06-23] MEDS: famotidine 20mg tablet PO SCH ×2 (07:41→20:00)
[2019-06-23] MEDS: guanFACINE 1 mg tablet PO SCH ×2 (07:41→20:00)
--- NOTE | 2019-06-23 08:05 | NUR ---
Resting in bed
--- NOTE | 2019-06-23 09:00 | NUR ---
resting in bed
--- NOTE | 2019-06-23 10:12 | NUR ---
resting in bed
--- NOTE | 2019-06-23 11:03 | NUR ---
Resting in bed
--- NOTE | 2019-06-23 12:00 | NUR ---
Resting in bed
--- NOTE | 2019-06-23 13:08 | NUR ---
Resting in bed
--- NOTE | 2019-06-23 14:31 | NUR ---
resting in bed
--- NOTE | 2019-06-23 16:01 | NUR ---
Resting in bed
--- NOTE | 2019-06-23 17:00 | NUR ---
Sitting in bed
--- NOTE | 2019-06-23 18:15 | NUR ---
upon taking report on this patient from abhishek (the [employer]) stated that the patient was agitated because of other patient being unruly. medications were given and he seemed to calm down .
[2019-06-23] MEDS ORDERED: diphenhydrAMINE 50 mg/ml inj IM ONE (19:00)
[2019-06-23] MEDS ORDERED: LORazepam 2 mg/ml vial IM PRN (19:00)
[2019-06-23] MEDS ORDERED: haloperidol lactate 5mg/ml inj IM PRN (19:00)
--- NOTE | 2019-06-23 20:22 | NUR ---
Upon taking report on this patient, he was agitated, unruly and and unwilling to follow commands. [facility] staff member were present during exchanges. staff present were Dejan aj)Ochoa Rn, Lele Marc, security rhett. With the continuing escalation, medication was necessary to help calm the agitated patients. Dr. knight agreeed and prescribed Halidol, Ativan and benedryl. Security was required to help with the administration of meds. Now after approximatley after 45 min after waiting for the onset of the medication, patient is calm and resting quietly.
--- NOTE | 2019-06-23 20:36 | NUR ---
Spoke to lady Poon regarding scheduled homemeds. Due to the prior agitation and calming meds, patient is now asleep. In attempting to arouse the patient to take his night meds was unsucessful. In discussing possible solutions with pharmacist, we decided to re-time the patient's scheduled meds for 0700 so as not to miss a dose or go out of the patient's medication regimine.
[2019-06-23] MEDS: lithium carbonate 150mg capsule PO SCH (20:49)
--- NOTE | 2019-06-24 06:40 | NUR ---
RCVD REPORT FROM CATHERINE MILTON, PT IS LAYING ON HIS RIGHT SIDE, EYES CLOSED, APPEARS TO BE SLEEPING, NO S/S OF AGITATION OBSERVED, WILL CONTINUE TO MONITOR
--- NOTE | 2019-06-24 07:30 | NUR ---
pt is still asleep
[2019-06-24] MEDS: guanFACINE 1 mg tablet PO SCH ×2 (08:15→20:16)
[2019-06-24] MEDS: famotidine 20mg tablet PO SCH ×2 (08:15→20:16)
--- NOTE | 2019-06-24 08:40 | NUR ---
spoke with Bel structural steel trades worker re plan for pt, she stated she just got here and read the notes to see status
--- NOTE | 2019-06-24 09:40 | NUR ---
pt is sitting up in bed, eyes open, no agitation observed
--- NOTE | 2019-06-24 09:41 | NUR ---
Bel mental health social worker, called Ryan Pichardo for status update,(Nga)
--- NOTE | 2019-06-24 11:00 | NUR ---
pt is resting in his room, no agitation observed
--- NOTE | 2019-06-24 12:00 | NUR ---
sitting up in bed, verbally saying he's going out the back door, then no one cares, setting the rest of the patients off
--- NOTE | 2019-06-24 12:35 | NUR ---
pt is up at the desk, requesting that we call hotels for him and his bank to find out about his balances, he was asked to call the people that handle his money
--- NOTE | 2019-06-24 13:30 | NUR ---
pt speaking out back and forth fron nurses desk
--- NOTE | 2019-06-24 13:50 | NUR ---
pt is getting more anxious req prn, prn will be given
[2019-06-24] MEDS: hydrOXYzine 25 MG tablet PO PRN ×2 (13:53→21:30)
--- NOTE | 2019-06-24 14:50 | NUR ---
pt asking about hotel names and numbers
--- NOTE | 2019-06-24 15:34 | NUR ---
pt has found a hotel, Glenis at [facility] that pt has money to pay, she will cover his hotel and get reimbursed for costs
--- NOTE | 2019-06-24 16:03 | NUR ---
called Rosie who handles pts housing at [phone] she is in contact with [facility] and a hotel that will accept the pt if he has supervision, they will not accept people with violent behaviors, they are trying to find staffing to sit with him at hotel, he is banned from [facility] [place] and various other hotels, she called back to tell me that she is in contact with an independant living provider that will come and grain picker his packet to put staff in hotel with pt 24 hours a day until they can find him more permanent housing, she will be in contact with us tomorrow
--- NOTE | 2019-06-24 16:41 | NUR ---
spoke to pt re plan of care, he is very upset to not be leaving, he is crying, I explained to him that going forward he needs to work on his behaviors so that he can re build some of the bridges that he has burned, he is appreciative of conversation, states that he is hungry, I gave him yogurt, crackers and cheese
--- NOTE | 2019-06-24 17:17 | NUR ---
pt is now laying in bed, calm no s/s of agitation
--- NOTE | 2019-06-24 17:57 | NUR ---
pt is laying on his left side, eyes closed, regular breathing present, no agitation observed
--- NOTE | 2019-06-24 19:00 | NUR ---
ATTEMPTED TO REACH NUVIA AT [facility], UNABLE TO LEAVE VOICEMAIL DUE TO IT BEING "FULL"
--- NOTE | 2019-06-24 20:04 | NUR ---
SPOKE WITH NUVIA, SHE STATES PT WILL NEED TO STAY ANOTHER NIGHT, HE DOESN'T HAVE A 24 HR CAREGIVER. THERE IS ONE POSSIBLY WILLING TO WORK WITHT HE PATIENT, BUT HE WILL NOT BE ABLE TO MAKE A DECISION UNTIL TOMORROW AFTER REVEIWING THE PATIENTS PAPERWORK. PT MADE AWARE.
[2019-06-24] MEDS: lithium carbonate 150mg capsule PO SCH (20:16)
--- NOTE | 2019-06-24 20:28 | NUR ---
PT GIVEN MEDICATIONS FOR THE NIGHT. HE WAS REQUESTING ATARAX BUT HE'S UNABLE TO HAVE HIS NEXT PRN DOSE UNTIL CLOSER TO 10PM. PT MADE AWARE. HE IS NOW LYING IN BED.
[2019-06-24] MEDS ORDERED: LORazepam 2 mg/ml vial IM ONE (21:20)
--- NOTE | 2019-06-24 21:39 | NUR ---
PT TALKING TO HIMSELF AND MAKES RANDOM NOISES. AT ONE POINT HE IS MEOWING LIKE A CAT. PT ENCOURAGED TO KEEP IT QUIET AND TO NOT SPEAK OR DISRUPT OTHER PTS. PT GIVEN 2MG IM ATIVAN FOR AGITATION.
--- NOTE | 2019-06-24 23:04 | NUR ---
pt is sleeping, no s/s of distress noted.
--- NOTE | 2019-06-25 07:00 | NUR ---
no concerns. pt is not on hold. pt is waiting placement
[2019-06-25] MEDS: famotidine 20mg tablet PO SCH ×2 (08:16→20:20)
[2019-06-25] MEDS: guanFACINE 1 mg tablet PO SCH ×2 (08:16→20:20)
--- NOTE | 2019-06-25 09:00 | NUR ---
PT RESTING IN HIS ROOM. NO ISSUES AT THIS TIME. PT IS NOT ON A HOLD. WAITING PLACEMENT
--- NOTE | 2019-06-25 11:00 | NUR ---
PT RESTING IN HIS ROOM. NO ISSUES AT THIS TIME. PT IS NOT ON A HOLD. WAITING PLACEMENT
--- NOTE | 2019-06-25 13:00 | NUR ---
PT RESTING IN HIS ROOM. NO ISSUES AT THIS TIME. PT IS NOT ON A HOLD. WAITING PLACEMENT
[2019-06-25] MEDS: hydrOXYzine 25 MG tablet PO PRN (15:44)
--- NOTE | 2019-06-25 16:37 | NUR ---
interview with care givers went well. care givers will type their report and hopefully be able to pick the patient up tomorrow
--- NOTE | 2019-06-25 17:19 | NUR ---
NO ISSUES AT THIS TIME.
--- NOTE | 2019-06-25 19:19 | NUR ---
Left message with [facility] staff Rosie at [phone] and asked her to return call to confirm patient's placement and discharge plans for tomorrow at noon.
--- NOTE | 2019-06-25 19:20 | NUR ---
The patient is resting on his bed. He was irritable but was cooperative with the evening assessment. He was made aware of plan for discharge tomorrow.
[2019-06-25] MEDS: lithium carbonate 150mg capsule PO SCH (20:20)
--- NOTE | 2019-06-25 21:48 | NUR ---
The patient appears to be sleeping
--- NOTE | 2019-06-25 22:47 | NUR ---
The patient is currently resting on his bed and appears to be asleep
--- NOTE | 2019-06-26 01:00 | NUR ---
The patient appears to be sleeping
--- NOTE | 2019-06-26 03:23 | NUR ---
The patient appears to be sleeping
--- NOTE | 2019-06-26 05:48 | NUR ---
The patient is awake and having a morning snack
--- NOTE | 2019-06-26 06:38 | NUR ---
sitting up in chair at the end of his bed with side table in front of him. a&ox4, wide awake and pleasant.
[2019-06-26 08:10] VITALS: BP 114/79
[2019-06-26] MEDS: guanFACINE 1 mg tablet PO SCH (08:19)
[2019-06-26] MEDS: famotidine 20mg tablet PO SCH (08:19)
--- NOTE | 2019-06-26 08:47 | NUR ---
up and down from bed to chair. ate breakfast and took meds no problem this AM. appears to be slightly restless. up to bathroom and changed and got cleaned up independently.
--- NOTE | 2019-06-26 09:44 | NUR ---
PATIENT WILL BE RECEIVING SERVICES THROUGH [facility] THROUGH A COMPANY CALLED [employer]. TREMAYNE (HELPDESK MANAGER OF [employer]) WILL BE PICKING PATIENT UP AT NOON. HER NUMBER IS [phone]. COLBY ATKINS ASKED TO MAKE SURE WE SEND MEDICATIONS WITH PATIENT.
--- NOTE | 2019-06-26 10:16 | NUR ---
sitting up in chair at end of his bed. eager to leave today. pt supposed to be picked up around 1200.
--- NOTE | 2019-06-26 11:41 | NUR ---
walking around the unit. anxious and excited to leave around 1200.
--- NOTE | 2019-06-26 12:42 | NUR ---
pt transferred to [facility]
== END 2019-06-26 12:45 ==
LOC: ER 15:17
DX: R45.851 Suicidal ideations (principal); R45.850 Homicidal ideations; F31.9 Bipolar disorder, unspecified; F20.9 Schizophrenia, unspecified; F12.90 Cannabis use, unspecified, uncomplicated; Z98.890 Other specified postprocedural states
CPT/HCPCS: 36415; 71045; 80053; 80178; 80305; 80320; 81003; 85025; 96372; 99285

== ENCOUNTER 2019-09-08 13:24 | Emergency (ER) | payer MEDICAID ==
[~2019-09-08] VITALS: Ht 172.7 cm; Wt 90.0 kg
[~2019-09-08 13:24] MED LIST changes: +GUAN1TAB PO; +HYDR-3686 PO; +LIT300C PO; -NO HOME MEDS
[2019-09-08 13:42] VITALS: BP 118/92
== END 2019-09-08 15:16 | disposition home or self-care (01) ==
LOC: ER 13:25
DX: M25.562 Pain in left knee (principal); F31.9 Bipolar disorder, unspecified; F20.9 Schizophrenia, unspecified; F12.90 Cannabis use, unspecified, uncomplicated; Z98.890 Other specified postprocedural states; Z72.89 Other problems related to lifestyle; Z79.899 Other long term (current) drug therapy
CPT/HCPCS: 99281

== ENCOUNTER 2019-09-22 14:40 | Emergency (ER) | payer MEDICAID ==
[~2019-09-22] VITALS: Ht 165.1 cm; Wt 70.5 kg
--- NOTE | 2019-09-22 15:01 | NUR ---
PT GIVEN 1000ML WATER, APPLE SAUCE AND SANDWICH. PT REPPORTS HE HAS NOT EATEN IN 3 DAYS.
[2019-09-22 15:45] VITALS: BP 138/85
--- NOTE | 2019-09-22 15:47 | NUR ---
PT GIVEN 2000 ML WATER, PT DRANK ALL OF IT.
== END 2019-09-22 16:29 | disposition home or self-care (01) ==
LOC: ER 14:41
DX: T67.5XXA Heat exhaustion, unspecified, initial encounter (principal); F31.9 Bipolar disorder, unspecified; F20.9 Schizophrenia, unspecified; F12.90 Cannabis use, unspecified, uncomplicated; Z98.890 Other specified postprocedural states; Z79.899 Other long term (current) drug therapy; X58.XXXA Exposure to other specified factors, initial encounter; Y93.89 Activity, other specified; Y92.89 Other specified places as the place of occurrence of the external cause; Y99.8 Other external cause status
CPT/HCPCS: 99283

== ENCOUNTER 2020-10-17 13:55 | Emergency (ER) | payer MEDICAID ==
[~2020-10-17] VITALS: Ht 165.1 cm; Wt 72.1 kg
[2020-10-17 14:20] VITALS: BP 122/73
== END 2020-10-17 15:55 | disposition home or self-care (01) ==
LOC: ER 13:56
DX: M25.572 Pain in left ankle and joints of left foot (principal); F31.9 Bipolar disorder, unspecified; F20.9 Schizophrenia, unspecified; F12.90 Cannabis use, unspecified, uncomplicated; Z72.89 Other problems related to lifestyle; Z98.890 Other specified postprocedural states; Z79.899 Other long term (current) drug therapy
CPT/HCPCS: 29515; 73610; 73630; 99284

== ENCOUNTER 2020-12-22 01:27 | Emergency (ER) | payer MEDICAID ==
[~2020-12-22] VITALS: Ht 167.6 cm; Wt 72.7 kg
[2020-12-22] MEDS ORDERED: acetaminophen 325mg tablet PO ONE (02:00)
[2020-12-22 04:34] VITALS: BP 136/78
== END 2020-12-22 04:36 | disposition home or self-care (01) ==
LOC: ER 01:28
DX: U07.1 COVID-19 (principal); R09.89 Other specified symptoms and signs involving the circulatory and respiratory systems; F31.9 Bipolar disorder, unspecified; F20.9 Schizophrenia, unspecified; F12.90 Cannabis use, unspecified, uncomplicated; Z72.89 Other problems related to lifestyle; Z98.890 Other specified postprocedural states; Z79.899 Other long term (current) drug therapy
CPT/HCPCS: 87635; 99283; C9803

== ENCOUNTER 2020-12-29 22:46 | Emergency (ER) | payer MEDICAID ==
[~2020-12-29] VITALS: Ht 170.2 cm; Wt 84.1 kg
[2020-12-29] MEDS ORDERED: BENZ-38 PO (23:05)
[2020-12-29] MEDS ORDERED: ALBU8HFA PO (23:05)
[2020-12-29 23:07] VITALS: BP 141/100
== END 2020-12-30 00:22 | disposition home or self-care (01) ==
LOC: ER 22:49
DX: U07.1 COVID-19 (principal); F31.9 Bipolar disorder, unspecified; F20.9 Schizophrenia, unspecified; F12.10 Cannabis abuse, uncomplicated; Z79.899 Other long term (current) drug therapy
CPT/HCPCS: 99282

== ENCOUNTER 2021-01-05 18:26 | Emergency (ER) | payer MEDICAID ==
[~2021-01-05] VITALS: Ht 165.1 cm; Wt 64.5 kg
[~2021-01-05 18:26] MED LIST changes: +ALBU8HFA PO; +BENZ-38 PO
[2021-01-05] MEDS ORDERED: NAPR-56 PO (20:09)
[2021-01-05 20:42] VITALS: BP 117/84
== END 2021-01-05 20:45 | disposition home or self-care (01) ==
LOC: ER 18:27
DX: S02.2XXA Fracture of nasal bones, initial encounter for closed fracture (principal); F12.90 Cannabis use, unspecified, uncomplicated; Z72.89 Other problems related to lifestyle; Z98.890 Other specified postprocedural states; Z79.899 Other long term (current) drug therapy; Z98.2 Presence of cerebrospinal fluid drainage device; Y04.0XXA Assault by unarmed brawl or fight, initial encounter; Y93.89 Activity, other specified; Y92.89 Other specified places as the place of occurrence of the external cause; Y99.8 Other external cause status
CPT/HCPCS: 70450; 99284

== ENCOUNTER 2021-01-11 05:30 | Emergency (ER) | payer MEDICAID ==
[~2021-01-11] VITALS: Ht 162.6 cm; Wt 75.0 kg
[~2021-01-11 05:30] MED LIST changes: -BENZ-38 PO; +NAPR-56 PO
[2021-01-11 05:43] VITALS: BP 125/78
[2021-01-11] MEDS ORDERED: NAPR-56 PO (06:04)
[2021-01-11] MEDS ORDERED: ALBU8HFA PO (06:04)
== END 2021-01-11 06:27 | disposition home or self-care (01) ==
LOC: ER 05:31
DX: M25.572 Pain in left ankle and joints of left foot (principal); F12.90 Cannabis use, unspecified, uncomplicated; J45.909 Unspecified asthma, uncomplicated; Z72.89 Other problems related to lifestyle; Z98.890 Other specified postprocedural states; Z79.899 Other long term (current) drug therapy
CPT/HCPCS: 99283

== ENCOUNTER 2021-01-29 23:07 | Emergency (ER) | payer MEDICAID ==
[~2021-01-29] VITALS: Ht 167.6 cm; Wt 76.0 kg
[2021-01-30] MEDS ORDERED: NEOM1OIN8 TOP (02:43)
[2021-01-30] MEDS ORDERED: proCHLORperazine 10mg tablet PO ONE (02:45)
[2021-01-30] MEDS ORDERED: acetaminophen 325mg tablet PO ONE (02:45)
[2021-01-30] MEDS ORDERED: ibuprofen tablet 400 MG TABLET PO ONE (02:45)
[2021-01-30] MEDS ORDERED: bacitracin 15gm ointment TP ONE (02:45)
[2021-01-30 03:19] VITALS: BP 115/74
== END 2021-01-30 03:23 | disposition home or self-care (01) ==
LOC: ER 23:07
DX: R51.9 Headache, unspecified (principal); J45.909 Unspecified asthma, uncomplicated; F31.9 Bipolar disorder, unspecified; F20.9 Schizophrenia, unspecified; F12.90 Cannabis use, unspecified, uncomplicated; Z98.890 Other specified postprocedural states; Z72.89 Other problems related to lifestyle; Z79.899 Other long term (current) drug therapy
CPT/HCPCS: 70450; 99284; Q0164

== ENCOUNTER 2021-02-12 02:13 | Emergency (ER) | payer MEDICAID ==
[~2021-02-12] VITALS: Ht 167.6 cm; Wt 74.8 kg
[~2021-02-12 02:13] MED LIST changes: -ALBU8HFA PO; -NAPR-56 PO; +NEOM1OIN8 TOP
[2021-02-12 02:21] VITALS: BP 109/68
[2021-02-12] MEDS ORDERED: ALBU8.5H17 IH (09:35)
== END 2021-02-12 10:23 | disposition home or self-care (01) ==
LOC: ER 02:13
DX: Z98.2 Presence of cerebrospinal fluid drainage device (principal); R51.9 Headache, unspecified; J45.909 Unspecified asthma, uncomplicated; F31.9 Bipolar disorder, unspecified; F20.9 Schizophrenia, unspecified; F12.90 Cannabis use, unspecified, uncomplicated; Z76.0 Encounter for issue of repeat prescription; Z98.890 Other specified postprocedural states; Z72.89 Other problems related to lifestyle; Z79.899 Other long term (current) drug therapy
CPT/HCPCS: 99283

== ENCOUNTER 2021-02-20 17:56 | Emergency (ER) | payer MEDICAID ==
[~2021-02-20] VITALS: Ht 167.6 cm; Wt 75.0 kg
[~2021-02-20 17:56] MED LIST changes: +ALBU8.5H17 IH
[2021-02-20 18:05] VITALS: BP 136/90
[2021-02-20] MEDS ORDERED: ketorolac trometh. 30mg/ml inj. IM ONE (19:05)
== END 2021-02-21 08:30 | disposition home or self-care (01) ==
LOC: ER 18:05
DX: M25.571 Pain in right ankle and joints of right foot (principal); F12.90 Cannabis use, unspecified, uncomplicated; Z72.89 Other problems related to lifestyle; Z79.2 Long term (current) use of antibiotics; Z79.899 Other long term (current) drug therapy
CPT/HCPCS: 96372; 99283; J1885

== ENCOUNTER 2021-10-20 01:35 | Emergency (ER) | payer SELFPAY ==
[~2021-10-20] VITALS: Ht 167.6 cm; Wt 79.5 kg
[2021-10-20] MEDS ORDERED: ZIPR20CA2 PO (02:46)
[2021-10-20 02:56] LABS: BASOPHILS % (AUTO) 0.6 % (0-1); EOSINOPHILS % (AUTO) 0.3 % (0-6); HEMATOCRIT 46.6 % (42.0-52.0); HEMOGLOBIN 16.3 g/dl (14.0-17.9); LYMPHOCYTES # (AUTO) 2.5 X10'3 (1.1-4.8); LYMPHOCYTES % (AUTO) 28.4 % (21-51); MEAN CORPUSCULAR HEMOGLOBIN 30.8 PG (27.0-31.0); MEAN CORPUSCULAR HGB CONC 34.9 g/dL (33.0-36.5); MEAN PLATELET VOLUME 7.1 FL (7.4-10.4); MONOCYTES # (AUTO) 0.5 X10'3 (0-0.9); MONOCYTES % (AUTO) 5.7 % (2-12); NEUTROPHILS # (AUTO) 5.7 X10'3 (1.8-7.7); PLATELET COUNT 294 X10'3 (140-440); RED BLOOD COUNT 5.29 X10'6 (4.70-6.10); RED CELL DISTRIBUTION WIDTH 13.1 % (11.5-14.5); WHITE BLOOD COUNT 8.8 X10'3 (4.5-11.0)
[2021-10-20 02:58] LABS: ALANINE AMINOTRANSFERASE 18 U/L (12-78); ALBUMIN 4.2 G/DL (3.4-5.0); ALBUMIN/GLOBULIN RATIO 1.2 (1.1-1.5); ALKALINE PHOSPHATASE 108 IU/L (46-116); ANION GAP 10 (8-16); ASPARTATE AMINO TRANSFERASE 10 U/L (10-37); BILIRUBIN,TOTAL 0.4 MG/DL (0.1-1.0); BLOOD UREA NITROGEN 13 MG/DL (7-18); BUN/CREATININE RATIO 13.5 (5.4-32.0); CALCIUM 8.8 MG/DL (8.5-10.1); CHLORIDE 109 MMOL/L (99-107); CREATININE 0.96 MG/DL (0.60-1.10); GLUCOSE 93 MG/DL (70-104); POTASSIUM 4.1 MMOL/L (3.5-5.1); SODIUM 144 MMOL/L (135-145); TOTAL PROTEIN 7.7 G/DL (6.4-8.2); eGFR > 90 ML/MIN
[2021-10-20 03:02] LABS: URINE AMPHETAMINE SCREEN NEGATIVE (Neg); URINE BARBITUATE SCREEN NEGATIVE (Neg); URINE BENZODIAZEPINES SCREEN NEGATIVE (Neg); URINE CANNABINOID SCREEN NEGATIVE (Neg); URINE COCAINE SCREEN NEGATIVE (Neg); URINE METHADONE SCREEN NEGATIVE (Neg); URINE OPIATE SCREEN NEGATIVE (Neg); URINE PHENCYCLIDINE SCREEN NEGATIVE (Neg)
[2021-10-20 03:08] LABS: CLARITY,URINE CLEAR (Clear); COLOR,URINE YELLOW (Yellow); GLUCOSE, URINE NEGATIVE (Neg); KETONES,URINE NEGATIVE (Neg); LEUKOCYTE ESTERASE ,URINE NEGATIVE (Neg); NITRITES, URINE NEGATIVE (Neg); OCCULT BLOOD,URINE NEGATIVE (Neg); PROTEIN,URINE NEGATIVE (Neg); UROBILINOGEN,URINE 0.2 E.U/dL (0.2-1.0)
[2021-10-20 03:10] LABS: UA COLLECTION TYPE CLN CATCH MIDSTREAM
--- NOTE | 2021-10-20 04:00 | NUR ---
PT brought to ER overflow from ER main. Pt belongings inventoried and pt changed into greens.
--- NOTE | 2021-10-20 05:21 | NUR ---
Pt asleep on R side RR 16
--- NOTE | 2021-10-20 06:07 | NUR ---
PACKET FAXED TO [facility]
[2021-10-20] MEDS ORDERED: ziprasidone 20mg capsule PO SCH (08:00)
[2021-10-20] MEDS ORDERED: guanFACINE 1 mg tablet PO SCH (08:00)
--- NOTE | 2021-10-20 08:47 | NUR ---
Kody with [facility] is evaluating the patient at bedside.
[2021-10-20 11:05] VITALS: BP 104/64
== END 2021-10-20 10:50 | disposition home or self-care (01) ==
LOC: ER 01:36
DX: R45.851 Suicidal ideations (principal); Z20.822 Contact with and (suspected) exposure to COVID-19; F31.9 Bipolar disorder, unspecified; J45.909 Unspecified asthma, uncomplicated; F20.9 Schizophrenia, unspecified; F12.10 Cannabis abuse, uncomplicated; Z79.899 Other long term (current) drug therapy
CPT/HCPCS: 36415; 80053; 80305; 81003; 84443; 85025; 87811; 99285

== ENCOUNTER 2021-11-14 20:20 | Emergency (ER) | payer OTHER ==
[~2021-11-14] VITALS: Ht 177.8 cm; Wt 74.8 kg
[~2021-11-14 20:20] MED LIST changes: -ALBU8.5H17 IH; -HYDR-3686 PO; -LIT300C PO; -NEOM1OIN8 TOP; +ZIPR20CA2 PO
[2021-11-14 20:49] VITALS: BP 133/95
[2021-11-14] MEDS ORDERED: amox tr/potassium clavulanate 875/125mg TAB PO ONE (21:45)
[2021-11-14] MEDS ORDERED: ibuprofen tablet 400 MG TABLET PO ONE (21:45)
[2021-11-14] MEDS ORDERED: ketorolac trometh inj. 60 MG/2 ML VIAL IM ONE (21:50)
--- NOTE | 2021-11-14 21:52 | NUR ---
LETY MELGOZA. CASE NUMBER IS [id number].
== END 2021-11-15 00:27 | disposition home or self-care (01) ==
LOC: ER 20:21
DX: S02.2XXA Fracture of nasal bones, initial encounter for closed fracture (principal); J45.909 Unspecified asthma, uncomplicated; F31.9 Bipolar disorder, unspecified; F12.90 Cannabis use, unspecified, uncomplicated; Y08.89XA Assault by other specified means, initial encounter; Y93.89 Activity, other specified; Y92.89 Other specified places as the place of occurrence of the external cause; Y99.8 Other external cause status
CPT/HCPCS: 70450; 70486; 72125; 96372; 99284; J1885

== ENCOUNTER 2022-04-08 11:53 | Emergency (ER) | payer MEDICAID ==
[~2022-04-08] VITALS: Ht 167.6 cm; Wt 75.0 kg
[2022-04-08 12:08] VITALS: BP 126/90
== END 2022-04-08 12:50 ==
LOC: ER 11:54
DX: S00.11XA Contusion of right eyelid and periocular area, initial encounter (principal); R51.9 Headache, unspecified; F31.9 Bipolar disorder, unspecified; F32.A Depression, unspecified; F20.9 Schizophrenia, unspecified; F12.10 Cannabis abuse, uncomplicated; J45.909 Unspecified asthma, uncomplicated; Z79.899 Other long term (current) drug therapy; Y04.8XXA Assault by other bodily force, initial encounter; Y93.89 Activity, other specified; Y92.89 Other specified places as the place of occurrence of the external cause; Y99.8 Other external cause status
CPT/HCPCS: 99283

== ENCOUNTER 2024-07-05 12:12 | Emergency (ER) | payer MEDICAID ==
[~2024-07-05] VITALS: Ht 167.6 cm; Wt 93.3 kg
[~2024-07-05 12:12] MED LIST changes: -GUAN1TAB PO; +GUAN1TAB62 PO
[2024-07-05 12:14] VITALS: BP 142/91; PULSE 103; RESP 16; TEMP 99.2; O2SAT 97
[2024-07-05] MEDS ORDERED: AMOX-580 PO (14:56)
[2024-07-05] MEDS ORDERED: CIPR2.5D21 LEFTEYE (14:56)
--- NOTE | 2024-07-05 14:57 | Physician Documentation ---
History of Present Illness ~ Chief Complaint: Eye Pain Stated Complaint: EYE PAIN Time Seen by MD: 12:30 OK to notify your PCP?: Yes Primary Medical Doctor: Joe OCONNOR 49-year-old male reports a chief complaint of pink eye. Patient has a history of conjunctivitis and the patient's caregiver states that he occasionally will rub feces in his eye. Currently has redness to the eye and drainage and discharge. Patient denies fevers or chills. 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 HEENT: Right eye exam: Positive for clear discharge coming from the eye with significant conjunctival injection. PERRLA. EOMs intact. Neck: Full range of motion, supple. Respiratory: Lungs clear, no respiratory distress. Chest: No accessory muscle use, nontender. Cardiovascular: Regular rate and rhythm. Gastrointestinal: Soft, nontender, nondistended. Bowel sounds present. Extremities: Normal range of motion, nontender, normal capillary refill, no deformity. Back: No midline tenderness, no CVA tenderness. Neurologic: Oriented x4. Distal gross motor and sensory intact all four extremities. Moves all 4 extremities spontaneously. Psychiatric: Normal mood and affect. Skin: Normal color, warm and dry. No edema, no ecchymosis Progress Results/Orders Results/Orders Vital Signs 07/05/24 12:14 Temp 99.2 Pulse 103 Resp 16 B/P (MAP) 142/91 Pulse Ox 97 O2 Flow Rate 0 Medical Decision Making Additional info obtained from: old records Findings After detailed discussion and joint medical decision-making, diagnostic and imaging results were discussed with the patient. At this time patient we will be given Cipro eye drops and we will be given Augmentin as well. Patient is advised to follow up with Ophthalmology. ER precautions were given. Patient is stable upon discharge. All patient questions answered to satisfaction Ear Diff. Dx: Considerations: Include: Other (Bacterial conjunctivitis, chemica l exposure, viral conjunctivitis) Departure Disposition: HOME / SELF CARE / HOMELESS Impression: Primary Impression: Conjunctivitis, bacterial Condition: Stable Discharge Instructions: Bacterial Conjunctivitis, Adult Additional Instructions: [place] is instructed to discontinue use of Cefepime and hold Azithromycin. Patient is instructed to take the Augmentin twice a day for ten days and the Ciloxan drops every 6 hours for 7 days. Referrals: NO PRIMARY CARE PROVIDER (PCP) Prescriptions Ciprofloxacin Hcl Ophth* (Ciloxan 0.35 Ophth Drops*) 2.5 Ml Bottle 1-2 DROP EACHEYE Q6H for 7 Days, #10 EACH Prov: NAM NOVA MD 07/05/24 Ciprofloxacin Hcl Ophth* (Ciloxan 0.35 Ophth Drops*) 2.5 Ml Bottle 1 DROP .SEE ORDER Q6H for 7 Days, #5 ML Prov: NAM NOVA MD 07/05/24 Amox Tr/Potassium Clavulanate 875/125 MG (Augmentin 875/125 MG) 875 Mg-125 Mg Tablet 1 TAB PO Q12H for 10 Days, #20 TAB Prov: RACHAEL MCCAULEY 07/05/24 Education Educated: Patient Educated regarding: diagnosis, treatment Additional Comment Additional Comment Patient has had some concern regarding the management of the patient. Also state requires written orders to change or discontinue medications. Patient did have some irritation bilaterally mostly in the right eye so I change the Cipro eyedrops to bilateral. Augmentin was already written and will remain the same. Written orders were given to the patient's to discontinue the erythromycin and cefdinir eyedrops. Patient was happy at that point in time and was discharged home Signature Scribe Signature: none used Scribed for Rachael Mccauley by Venkat Brown . 07/05/24 15:53 (Departure per Les) Attestation: Scribed for Rachael Mccauley by Rachael COSBY . 07/05/24 14:57 RACHAEL MCCAULEY July 05, 2024 14:57 NAM NOVA MD July 05, 2024 15:51 VENKAT DALEY July 05, 2024 15:54
[2024-07-05] MEDS ORDERED: proparacaine 0.5% ophthalmic drops 15ml EACHEYE ONE (15:00)
[2024-07-05] MEDS ORDERED: CIPR2.5D21 (15:50)
[2024-07-05] MEDS ORDERED: CIPR2.5D21 EACHEYE (15:50)
== END 2024-07-05 16:25 | disposition home or self-care (01) ==
LOC: ER 12:12
DX: H10.89 Other conjunctivitis (principal); F17.200 Nicotine dependence, unspecified, uncomplicated; F12.90 Cannabis use, unspecified, uncomplicated; F20.9 Schizophrenia, unspecified; J45.909 Unspecified asthma, uncomplicated; F31.9 Bipolar disorder, unspecified; Z79.899 Other long term (current) drug therapy
CPT/HCPCS: 99283